=== PATIENT | female | born 1940 | race Caucasian/White ===

== ENCOUNTER 2016-07-28 08:52 | Inpatient (IN) | payer MEDICARE, BC ==
[~2016-07-28 08:52] MED LIST: ALEVE; ALEVE220 M3 PO; AMOXICILLIN500 M1 PO; ASMANEX220 MC1 INH; ASPIRIN325 M3 PO; B122500 MCG; CALCIUM600 M1 PO; CIPRO250 MG PO; CLARITIN10 M6 PO; COLACE100 M1 PO; DILTIAZEM ER120 M1 PO; DULCOLAX10 MG; ECOTRIN81 M2 PO; FISH OIL 11000 MG/CA PO; FLOVENT DISKUS50 MCG; IRON325 ( 65; LUTEIN-ZEAXANT1 EAC1 PO; MELATONIN1 MG; MIRALAX17 G2 PO; MOBIC7.5 M2 PO; MULTIVITAMIN1 TAB; MULTIVITAMINS1 EAC6 PO; PANTOPRAZOLE SO40 M3 PO; PERIDEX118 ML SSP; PREVIDENT 500051 GM DT; PYRIDIUM200 MG PO; REQUIP0.5 MG; ROXICODONE5 M2 PO; SENNA-S TABLET1 EAC3 PO; SINGULAIR10 M1 PO; SYNTHROID50 MC1 PO; TAZTIA XT120 MG; TYLENOL325 M2 PO; ULTRAM50 M1 PO; VENTOLIN HFA18 G2 INH; VITAMIN C1000 M1 PO; [UNRECOGNIZED DRUG - OTHER] PO
[2016-07-28 10:29] LABS: INR 1.1 INR (0.9-1.1); PROTHROMBIN TIME 12.3 SECONDS (9.0-13.6)
[2016-07-29 04:17] LABS: BASO % 0.2 % (0-2); EOS % 0.1 % (0-7); HCT-HEMATOCRIT 36.5 % (34.0-49.0); HGB-HEMOGLOBIN 11.9 gm/dl (12.0-15.5); IMMATURE GRANULOCYTES ABSOLUTE 0.02 tho/cmm (0-0.03); IMMATURE GRANULOCYTES PERCENT 0.2 % (0-0.3); LYMPH % 9.2 % (20-45); LYMPH ABSOLUTE COUNT 0.9 tho/cmm (0.8-4.5); MCH (MEAN CORPUSCULAR HGB) 26.9 pg (28.0-32.0); MCHC MEAN CORPUSCULAR HGB CONC 32.6 % (32.0-36.0); MCV (MEAN CELL VOLUME) 82.4 fl (82.0-96.0); MEAN PLATELET VOLUME 12.5 cmc (9.4-12.4); MONO % 4.7 % (0-12); MONOCYTE ABSOLUTE COUNT 0.5 tho/cmm (0.0-1.2); NEUTROPHIL ABSOLUTE COUNT 8.3 tho/cmm (1.6-8.0); NEUTROPHIL-AUTOMATED 8.3 tho/cmm (1.6-8.0); NEUTROPHILS % 85.6 % (40-80); PLATELET COUNT 140 tho/cmm (150-450); RED BLOOD COUNT 4.43 mil/cmm (4.00-5.20); RED CELL DISTRIBUTION WIDTH 14.6 % (12.4-16.4); WHITE BLOOD COUNT 9.7 tho/cmm (4.0-10.0)
[2016-07-29 04:18] LABS: ANION GAP 7 mmol/L (0-20); BLOOD UREA NITROGEN 18 mg/dl (6-24); CALCIUM 8.4 mg/dl (8.5-10.5); CARBON DIOXIDE-VENOUS 29 mmol/L (22-32); CHLORIDE 108 mmol/l (96-110); GLUCOSE 140 mg/dL (70-110); POTASSIUM 4.6 mmol/L (3.7-5.1); SODIUM 139 mmol/L (135-145); eGFR VALUE FOR BLACK >90 mL/Min
[2016-07-30] MEDS ORDERED: ZOFRAN4 M2 PO (09:28)
[2016-07-30] MEDS ORDERED: ULTRAM50 M1 PO (09:29)
[2016-07-30] MEDS ORDERED: NORCO 5-325 TA1 EACH PO (09:31)
== END 2016-07-30 12:10 | DRG 468 ==
LOC: SHSB 08:52 → ORE 12:10 → PACU 14:26 → 5EA 15:20
PROVIDERS: Internal Medicine; Physician Assistant Surgical; ADMIT Orthopaedic Surgery Foot and Ankle Surgery
PROC: 0SRD0J9 Replacement of Left Knee Joint with Synthetic Substitute, Cemented, Open Approach (ICD-10-PCS; principal; 2016-07-28)
PROC: 0SPD0JZ Removal of Synthetic Substitute from Left Knee Joint, Open Approach (ICD-10-PCS; principal; 2016-07-28)
DX: T84.033A Mechanical loosening of internal left knee prosthetic joint, initial encounter (principal); E03.9 Hypothyroidism, unspecified; K21.9 Gastro-esophageal reflux disease without esophagitis; G47.33 Obstructive sleep apnea (adult) (pediatric); Z88.5 Allergy status to narcotic agent; Z88.2 Allergy status to sulfonamides; Z79.899 Other long term (current) drug therapy; Y83.1 Surgical operation with implant of artificial internal device as the cause of abnormal reaction of the patient, or of later complication, without mention of misadventure at the time of the procedure
CPT/HCPCS: C1713; C1776; J0171; J0690; J1170; J1885; J2270; J2405; J2795; J3010; J3370